=== PATIENT | male | born 1965 | race Caucasian/White ===

== ENCOUNTER 2020-07-05 16:43 | Outpatient (CLI) | payer OTHER, SELFPAY ==
[2020-07-05 17:14] LABS: Add Urine Microscopic? YES; Appearance Urine Clear (Clear); Bacteria Urine Trace /hpf; Bilirubin Urine Negative (Negative); Blood Urine Negative (Negative); Color Urine Yellow (Yellow); Glucose Urine UA Negative (Negative); Ketones Urine Negative (Negative); Leukocyte Esterase Ur Negative LEU/UL (NEGATIVE); Mucus Urine Rare /lpf; Nitrate Urine Negative (Negative); Protein Urine Negative (Negative); RBC Urine 0-2 /hpf (0-2); WBC Urine 0-3 /hpf (0-3)
[2020-07-05 18:00] LABS: Prostate Specific Antigen 4.5 ng/mL (< OR = 4.0)
== END 2020-07-05 16:44 | disposition home or self-care (01) ==
LOC: ANHLAB 16:46
PROVIDERS: Family Provider Internal Medicine; Visit Provider Internal Medicine
DX: C61 Malignant neoplasm of prostate (principal); R89.7 Abnormal histological findings in specimens from other organs, systems and tissues
CPT/HCPCS: 36415; 81001; 84153; 87086

== ENCOUNTER 2020-07-07 06:54 | Outpatient (NON) | payer OTHER, SELFPAY ==
[2020-07-07 16:56] LABS: SARS-CoV-2 RNA PCR Negative
== END 2020-07-07 06:55 ==
LOC: ANHCOVIDDT 07:00
PROVIDERS: Family Provider Internal Medicine; Visit Provider Clinical Nurse Specialist
DX: Z01.812 Encounter for preprocedural laboratory examination (principal); Z20.822 Contact with and (suspected) exposure to COVID-19
CPT/HCPCS: C9803; U0003; U0005

== ENCOUNTER → 2020-10-13 06:43 | Outpatient (CLI) | payer OTHER, SELFPAY ==
[2020-10-14 18:42] LABS: SARS-CoV-2 RNA PCR Negative
== END ==
PROVIDERS: Visit Provider Nurse Practitioner
DX: Z01.812 Encounter for preprocedural laboratory examination (principal); Z20.822 Contact with and (suspected) exposure to COVID-19
CPT/HCPCS: C9803; U0003; U0005

== ENCOUNTER 2022-08-21 12:30 | Outpatient (RCR) | payer OTHER, SELFPAY ==
--- NOTE | 2022-07-03 15:08 | PTOPEVAL1 ---
Assessment and note entered by Eder Darnell, PT, DPT Evaluation Information Assessment Status Evaluation Diagnosis cervical radiculopathy Onset 4 years Subjective Information Pt states his pain is in the lower R side of his neck. He states he has numbness and tingling that radiates down into his hands. He states he has had the issue prior but it has always gone away on its own. This pain has been persistent for 8 months. He states the pain is positional. Reported Pain Level Pain Score 3: Self Report Assessment PT Clinical Summary The patient presents to therapy today for his initial evaluation with a diagnosis of cervical radiculopathy. Today he demonstrates excellent BUE ROM and strength. He has normal flexion, L rotation, and L side bend cervical ROM but is limited with extension, R side bend, and R rotation. He demonstrates numbness down his arm and into the fingers on his R hand. Today he demonstrates decreased mobility with sidegliding on the R. Skilled physical therapy services are indicated to address the deficits noted above, to improve radiating symptoms, and to return to baseline function. Plan of Care Interventions Hot Pack/Cold Pack,Manual Therapy,Mechanical Traction,Neuro Re-education,Patient/Caregiver Educati,Therapeutic Activities,Therapeutic Exercise PT Services Indicated Yes Treatment Frequency and 1x/wk for 4 wks Duration These treatments will address the objective and functional deficits as defined above. The patient will be advanced safely and appropriately in order for the patient to progress towards his/her prior level of function. Additional exercises will be introduced and as well as a comprehensive home exercise program upon discharge, if needed, ?to ensure carryover of functional gains achieved in the clinic. This treatment plan has been reviewed and agreement upon by the patient.
--- NOTE | 2022-07-24 08:48 | PCPTNOTE ---
Patient called & cancelled scheduled appointment this date due to scheduling conflicts.
--- NOTE | 2022-07-31 13:14 | PTOPPROG ---
Assessment and note entered by Eder Darnell, PT, DPT Evaluation Information Assessment Status Progress Diagnosis cervical radiculopathy Onset 4 years Subjective Information Pt reports no real change in his symptoms. He continues to report that his pain is very positional. He has no pain when standing or laying down. Assessment PT Clinical Summary The patient presents to therapy today for his progress report following 3 visits of skilled therapy to treat his diagnosis of cervical radiculopathy. Today he demonstrates mild improvements in his cervical ROM without improvements in his radicular symptoms. He would like to pursue an ergonomical evaluation to potentially get additional equipment for his work space. Continuation of skilled physical therapy services are indicated to further address his deficits and to manage pain and peripheral symptoms. Plan of Care Interventions Hot Pack/Cold Pack,Manual Therapy,Mechanical Traction,Neuro Re-education,Patient/Caregiver Educati,Therapeutic Activities,Therapeutic Exercise PT Services Indicated Yes Treatment Frequency and 1x/wk for 4 wks Duration These treatments will address the objective and functional deficits as defined above. The patient will be advanced safely and appropriately in order for the patient to progress towards his/her prior level of function. Additional exercises will be introduced and as well as a comprehensive home exercise program upon discharge, if needed, ?to ensure carryover of functional gains achieved in the clinic. This treatment plan has been reviewed and agreement upon by the patient.
--- NOTE | 2022-08-14 12:54 | PCPTNOTE ---
Patient called & cancelled scheduled appointment this date due to getting stuck at work.
--- NOTE | 2022-09-28 12:39 | PTOPDC ---
Assessment and note entered by Eder Darnell, PT, DPT Evaluation Information Assessment Status Discharge - Pt Not Present Diagnosis cervical radiculopathy Onset 4 years Subjective Information Spoke with patient to follow up. 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 A work place eval was completed and it was recommended that patient get a standing desk for work. Assessment PT Clinical Summary Pt completed 6 visits of skilled therapy from to 08/21/22 and will be discharged at this time to continue his HEP on his own. Plan of Care PT Services Indicated Yes
== END 2022-09-28 13:17 | disposition home or self-care (01) ==
LOC: ANHGOSHPT 12:30
DX: M54.12 Radiculopathy, cervical region (principal)
CPT/HCPCS: 97012; 97110; 97140; 97161; 97530

== ENCOUNTER 2022-12-03 12:46 | Outpatient (CLI) | payer OTHER, SELFPAY ==
[2022-12-03 19:17] LABS: Kit Draw Collected
== END 2022-12-03 12:47 | disposition home or self-care (01) ==
LOC: ANHGOSHLAB 12:51
DX: N52.9 Male erectile dysfunction, unspecified (principal); C61 Malignant neoplasm of prostate
CPT/HCPCS: 36415